=== PATIENT | male | born 1955 | race Caucasian/White ===

== ENCOUNTER 2021-05-28 12:50 | Emergency (ER) | payer OTHER, BC ==
[~2021-05-28] VITALS: Ht 172.7 cm; Wt 127.0 kg
[~2021-05-28 12:50] MED LIST: ALBUTEROL INHAL17 GM IH; ASCORBIC ACID500 M3 OR; ASPIR 8181 MG PO; BENICAR20 MG OR; DUONEB 2.5-0.5 M3 ML IH; LEVEMIR SC; LOSARTAN POTAS100 MG PO; METFORMIN; METFORMIN HCL500 MG PO; MULTIVITAMINS OR; NOVOLOG100 UNIT/1; PERCOCET 10-321 EACH OR; PREDNISONE 10 M10 M1 OR; PREDNISONE 10 M10 M1 PO; PREDNISONE 10 M10 MG PO; PROTONIX40 M2 OR; SILVADENE20 GM TP; SINGULAIR 10 MG10 M1 OR; SYMBICORT160 MCG/4.; SYMBICORT160 MCG/4. IH; VIBRAMYCIN100 MG PO; ZINC SULFATE 2220 M1 OR
[2021-05-28 15:17] LABS: ABSOLUTE NEUTROPHILS 15.9 thou/uL (1.4-8.2); BASOPHILS 0.1 % (0.0-2.0); EOSINOPHILS 0.1 % (0.0-3.0); HEMATOCRIT 45.8 % (42.0-52.0); HEMOGLOBIN 15.5 gm/dL (14.0-18.0); LYMPHOCYTES 8.5 % (24.0-44.0); MCH 33.2 pg (26.0-34.0); MCHC 33.8 g/dL (28.0-37.0); MCV 98.2 fL (80.0-100.0); MONOCYTES 5.8 % (1.0-8.0); PLATELET COUNT 228 thou/uL (150-400); POLYS 85.5 % (36.0-66.0); RBC 4.66 mil/uL (4.50-6.00); RDW 12.9 % (10.5-14.5); WBC 18.6 thou/uL (4.0-11.0)
[2021-05-28 15:24] LABS: CREATININE 0.9 mg/dL (0.7-1.3); POTASSIUM 4.1 mmol/L (3.5-5.1)
[2021-05-28 15:41] LABS: CALCIUM 9.2 mg/dL (8.5-10.1)
[2021-05-28 16:08] LABS: URINE BILIRUBIN NEGATIVE (Negative); URINE BLOOD NEGATIVE (Negative); URINE CLARITY CLEAR; URINE COLOR YELLOW; URINE GLUCOSE-RANDOM* 3+ (Negative); URINE KETONES NEGATIVE (Negative); URINE LEUKOCYTES-REFLEX NEGATIVE (Negative); URINE NITRITE-REFLEX NEGATIVE (Negative); URINE PROTEIN (DIPSTICK) NEGATIVE (Negative); URINE SPECIFIC GRAVITY 1.015 (1.005-1.035); URINE UROBILINOGEN 0.2 E.U./dl (0.2-1.0)
[2021-05-28 17:29] VITALS: BP 118/70
--- NOTE | 2021-06-03 14:59 | EKG ---
[place] [address] [facility] 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 : 1955 Requested By: Aubrey Ortega Order Number: [id number] MD: Sancho Powers Measurements Intervals [place] Rate: 82 P: 50 IL: 171 QRS: -47 QRSD: 96 T: 13 QT: 409 QTc: 478 Interpretive Statements Prolonged IL interval Consider left atrial enlargement Left axis deviation Low voltage, precordial leads Borderline prolonged QT interval Baseline wander in lead(s) II,III,aVR,aVL,aVF,V1,V2,V3,V4,V6 No previous ECG available for comparison Electronically Signed On 06-03-2021 14:59:28 CDT by Sancho Powers [email or web address] <ELECTRONICALLY SIGNED> By: Sancho Powers MD, FAC 06/03/21 1459 1535 1535 Sancho Powers MD, [facility] /EPI
== END 2021-05-28 17:35 | disposition home or self-care (01) ==
LOC: ER 12:50
PROVIDERS: Nurse Practitioner
DX: R53.1 Weakness (principal); Z20.822 Contact with and (suspected) exposure to COVID-19; E11.9 Type 2 diabetes mellitus without complications; I10 Essential (primary) hypertension; Z77.123 Contact with and (suspected) exposure to radon and other naturally occurring radiation; Z90.49 Acquired absence of other specified parts of digestive tract; Z79.84 Long term (current) use of oral hypoglycemic drugs; Z79.82 Long term (current) use of aspirin; Z79.899 Other long term (current) drug therapy; Z88.0 Allergy status to penicillin